=== PATIENT | female | born 2000 | race Hispanic/Latino ===

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

== ENCOUNTER 2019-03-29 08:23 | Emergency (ER) | payer MEDICAID ==
[2019-03-29 08:32] VITALS: BP 121/59
--- NOTE | 2019-03-29 10:00 | Emergency Department Report ---
- General Chief Complaint: Headache Stated Complaint: SEVERE HEADACHE Time Seen by Provider: 03/29/19 09:08 Source: patient Mode of arrival: Ambulatory Limitations: No Limitations - History of Present Illness Initial Comments: This is a 18-year-old female nontoxic, well nourished in appearance, no acute signs of distress presents to the ED with c/o of frontal nasal pain, rhinorrhea, nasal congestion x2 days. Patient denies any cough. Patient denies any sick contact. Patient denies any recent travels, long car, recent hospital stays. Patient denies any calf pain or calf tenderness. Patient denies any chest pain, short of breath, fever, chills, nausea, vomiting, hemoptysis, numbness, tingling, headache or stiff neck. MD Complaint: rhinorrhea, nasal congestion, sinus pain -: days(s) Severity: mild Severity scale (0 -10): 8 Quality: aching Consistency: constant Improves With: nothing Worsens With: other (palpation) Associated Symptoms: headache (frontal sinus), rhinorrhea, nasal congestion. denies: fever, chills, myalgias, diaphoresis, sore throat, stiff neck, cough, chest pain, shortness of breath, abdominal pain, nausea, vomiting, diarrhea, dysuria, rash, confusion, right sweats, weight loss, epistaxis, hoarseness, ear pain Treatments Prior to Arrival: none - Related Data Previous Rx's Medication Instructions Recorded Last Taken Type Acetaminophen/Codeine [Tylenol 1 tab PO Q6H PRN #12 tab 11/16/18 Unknown Rx /Codeine # 3 tab] Clindamycin [Clindamycin CAP] 300 mg PO Q8H #21 cap 11/16/18 Unknown Rx Amoxicillin/Potassium Clav 1 each PO Q12H #20 tablet 03/29/19 Unknown Rx [Augmentin 500-125 Tablet] Fluticasone [Flonase] 1 spray NS QDAY #1 bottle 03/29/19 Unknown Rx Ibuprofen [Motrin] 600 mg PO Q8H PRN #20 tablet 03/29/19 Unknown Rx Allergies Allergy/AdvReac Type Severity Reaction Status Date / Time nut - unspecified Allergy Swelling Verified 11/16/18 13:02 ED Review of Systems ROS: Stated complaint: SEVERE HEADACHE Other details as noted in HPI Constitutional: denies: chills, fever Eyes: denies: eye pain, eye discharge, vision change ENT: denies: ear pain, throat pain Respiratory: denies: cough, shortness of breath, wheezing Cardiovascular: denies: chest pain, palpitations Endocrine: no symptoms reported Gastrointestinal: denies: abdominal pain, nausea, diarrhea Genitourinary: denies: urgency, dysuria, discharge Musculoskeletal: denies: back pain, joint swelling, arthralgia Skin: denies: rash, lesions Neurological: denies: headache, weakness, paresthesias Psychiatric: denies: anxiety, depression Hematological/Lymphatic: denies: easy bleeding, easy bruising ED Past Medical Hx - Past Medical History Previous Medical History?: No - Surgical History Past Surgical History?: No - Social History Smoking Status: Never Smoker Substance Use Type: None - Medications Home Medications: Home Medications Medication Instructions Recorded Confirmed Last Taken Type Acetaminophen/Codeine [Tylenol 1 tab PO Q6H PRN #12 tab 11/16/18 Unknown Rx /Codeine # 3 tab] Clindamycin [Clindamycin CAP] 300 mg PO Q8H #21 cap 11/16/18 Unknown Rx Amoxicillin/Potassium Clav 1 each PO Q12H #20 tablet 03/29/19 Unknown Rx [Augmentin 500-125 Tablet] Fluticasone [Flonase] 1 spray NS QDAY #1 bottle 03/29/19 Unknown Rx Ibuprofen [Motrin] 600 mg PO Q8H PRN #20 tablet 03/29/19 Unknown Rx ED Physical Exam - General Limitations: No Limitations General appearance: alert, in no apparent distress - Head Head exam: Present: atraumatic, normocephalic - ENT ENT exam: Present: normal exam, normal orophraynx - Neck Neck exam: Present: normal inspection, full ROM. Absent: tenderness, meningism us, lymphadenopathy - Respiratory Respiratory exam: Present: normal lung sounds bilaterally. Absent: respiratory distress, wheezes, rales, rhonchi, stridor, chest wall tenderness, accessory muscle use, decreased breath sounds, prolonged expiratory - Cardiovascular Cardiovascular Exam: Present: regular rate, normal rhythm, normal heart sounds. Absent: bradycardia, tachycardia, irregular rhythm, systolic murmur, diastolic murmur, rubs, gallop - Extremities Exam Extremities exam: Present: normal inspection, full ROM - Back Exam Back exam: Present: normal inspection, full ROM - Neurological Exam Neurological exam: Present: alert, oriented X3, normal gait - Psychiatric Psychiatric exam: Present: normal affect, normal mood - Skin Skin exam: Present: warm, dry, intact, normal color. Absent: rash - Other Other exam information: positive frontal sinus pain ED Course Vital Signs 03/29/19 08:29 Temperature 98.3 F Pulse Rate 100 H Respiratory 16 Rate Blood Pressure 121/59 O2 Sat by Pulse 100 Oximetry - Reevaluation(s) Reevaluation #1: 03/29/19 09:58 Patient is speaking in full sentences with no signs of distress noted. ED Medical Decision Making - Medical Decision Making This is a 18-year-old female that presents with sinusitis. Patient is stable and was examined by me. Chest x-ray has been obtained and dictated by radiologist with normal exam. Patient is notified of x-ray results with no questions noted. Patient is discahrged with augmentin. Patient was instructed to increase hydration, rest and take Motrin for fever/pain episodes. Vitals stable. Patient is nonfebrile and normal heart rate. Patient was instructed Follow-up with a primary care doctor in 3-5 days or if symptoms worsen and continue return to emergency room as soon as possible. At time time of discharge, the patient does not seem toxic or ill in appearance. No acute signs of distress noted. Patient agrees to discharge treatment plan of care. No further questions noted by the patient. Critical care attestation.: If time is entered above; I have spent that time in minutes in the direct care of this critically ill patient, excluding procedure time. ED Disposition Clinical Impression: Sinusitis Qualifiers: Sinusitis location: frontal Chronicity: acute Recurrence: not specified as recurrent Qualified Code(s): J01.10 - Acute frontal sinusitis, unspecified Disposition: DC- TO HOME OR SELFCARE Is pt being admited?: No Does the pt Need Aspirin: No Condition: Stable Instructions: Sinusitis (ED) Additional Instructions: Follow-up with a primary care doctor in 3-5 days or if symptoms worsen and continue return to emergency room as soon as possible. Prescriptions: Amoxicillin/Potassium Clav [Augmentin 500-125 Tablet] 1 each PO Q12H #20 tablet Fluticasone [Flonase] 1 spray NS QDAY #1 bottle Ibuprofen [Motrin] 600 mg PO Q8H PRN #20 tablet PRN Reason: Pain/Fever Referrals: PRIMARY CARE,MD [Primary Care Provider] - 3-5 Days ROSINA GONZALEZ MD [Staff Physician] - 3-5 Days [facility] [Outside] - 3-5 Days [facility] [Outside] - 3-5 Days Forms: Work/School Release Form(ED)
== END 2019-03-29 10:06 | disposition home or self-care (01) ==
LOC: ED 08:23
DX: J01.10 Acute frontal sinusitis, unspecified (principal)
CPT/HCPCS: 99282

== ENCOUNTER 2021-07-26 14:41 | Emergency (ER) | payer MEDICARE ==
[2021-07-26 15:16] VITALS: BP 165/54
[2021-07-26] MEDS ORDERED: traMADol 50 MG TAB PO ONE (18:05)
[2021-07-26] MEDS ORDERED: IBUPROFEN 600 MG TAB PO ONE (18:05)
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
== END 2021-07-26 18:33 | disposition home or self-care (01) ==
LOC: ED 14:41
DX: S20.211A Contusion of right front wall of thorax, initial encounter (principal); Z91.010 Allergy to peanuts; X58.XXXA Exposure to other specified factors, initial encounter; Y93.89 Activity, other specified; Y92.89 Other specified places as the place of occurrence of the external cause; Y99.8 Other external cause status
CPT/HCPCS: 99282